=== PATIENT | female | born 1970 | race Caucasian/White ===

== ENCOUNTER → 2016-11-19 | Outpatient (CLI) | payer BC | LOC: BMCIMAGING 09:47 | DX: Z12.31 Encounter for screening mammogram for malignant neoplasm of breast (principal) | CPT/HCPCS: G0202 ==

== ENCOUNTER → 2017-03-13 | Outpatient (CLI) | payer BC | LOC: BMCIMAGING 08:50 | PROVIDERS: ATTEND Physician Assistant | DX: Z09 Encounter for follow-up examination after completed treatment for conditions other than malignant neoplasm (principal); K76.89 Other specified diseases of liver ==

== ENCOUNTER → 2017-11-04 | Outpatient (CLI) | payer BC, OTHER | LOC: FIMAGING 09:33 | PROVIDERS: ATTEND Physician Assistant | DX: D18.09 Hemangioma of other sites (principal); K76.9 Liver disease, unspecified ==

== ENCOUNTER → 2017-11-25 | Outpatient (CLI) | payer OTHER | LOC: BMCIMAGING 11:49 | PROVIDERS: ATTEND Physician Assistant | DX: Z12.31 Encounter for screening mammogram for malignant neoplasm of breast (principal) ==

== ENCOUNTER → 2017-11-25 | Outpatient (CLI) | payer OTHER ==
[~2017-11-25] MED LIST: IOPAMIDOL (ISOVUE-300) 100 ML BTL ONE
== END ==
LOC: FIMAGING 09:39
PROVIDERS: ATTEND Physician Assistant
DX: K76.9 Liver disease, unspecified (principal)
CPT/HCPCS: Q9967